=== PATIENT | female | born 1960 ===

== ENCOUNTER 2018-02-08 12:37 | Observation (INO) | payer MEDICARE, MEDICAID ==
[2018-02-08] MEDS ORDERED: Sodium Chloride 0.9% 1,000 ML IV ONE ×2 (13:30→15:56)
[2018-02-08 14:08] LABS: HEMOGLOBIN 12.9 g/dL (11.0-16.0); MONO # 0.8 K/uL (0.0-0.8); NEUT # 3.9 K/uL (1.8-7.0); NRBC % 0.1 % (0.0-2.0); WHITE BLOOD COUNT 5.7 K/uL (4.8-10.8)
[2018-02-08 14:13] LABS: BASO % 0.4 % (0.0-2.0); EOS % 0.5 % (0.0-4.0); LYMPH % 17.2 % (20.0-40.0); MEAN CELL VOLUME 89.2 fL (81.0-99.0); MEAN CORPUSCULAR HEMOGLOBIN 30.9 pg (27.0-31.0); MEAN CORPUSCULAR HGB CONC 34.7 g/dL (33.0-37.0); MEAN PLATELET VOLUME 10.6 fL (7.2-11.7); MONO % 13.5 % (0.0-10.0); NEUT % 68.4 % (50.0-75.0); RBC 4.17 Mil/uL (3.80-5.20); RED CELL DISTRIBUTION WIDTH 14.4 % (11.5-14.5)
[2018-02-08 14:14] LABS: INR 1.2; PROTHROMBIN TIME 13.6 SECONDS (9.7-12.2)
[2018-02-08 14:16] LABS: SQUAMOUS EPITHIAL 5 /hpf (0-5); URINE BACTERIA FEW (<OCC); URINE BILIRUBIN NEGATIVE (NEGATIVE); URINE BLOOD 1+ (NEGATIVE); URINE CLARITY Clear (Clear); URINE COLOR Yellow (YELLOW); URINE GLUCOSE (UA) NORMAL (Normal); URINE LEUKOCYTE ESTERASE 2+ Leu/uL (Negative); URINE PROTEIN NEGATIVE (NEGATIVE); URINE UROBILINOGEN NORMAL mg/dL (0.2-1.0)
[2018-02-08 14:31] LABS: BLOOD UREA NITROGEN 7 mg/dL (7-17); GFR NON-AFRICAN AMERICAN > 60
[2018-02-08 14:32] LABS: ALB/GLOB RATIO 1.2 (1.0-2.1); ALBUMIN 4.3 g/dL (3.5-5.0); ALT/SGPT 36 U/L (9-52); AST/SGOT 24 U/L (14-36); CALCIUM 9.4 mg/dl (8.6-10.4); LIPASE 63 U/L (23-300)
[2018-02-08] MEDS ORDERED: Iodixanol 320 MG/ML 100 ML BOTTLE IV ONE (15:23)
--- NOTE | 2018-02-08 16:28 | CT ---
Date of service: 02/08/2018 PROCEDURE: CT Abdomen and Pelvis with contrast HISTORY: LLQ pain COMPARISON: No prior study available comparison TECHNIQUE: Contrast dose: 100 cc Visipaque Radiation dose: Total exam DLP = mGy-cm. This CT exam was performed using one or more of the following dose reduction techniques: Automated exposure control, adjustment of the mA and/or kV according to patient size, and/or use of iterative reconstruction technique. FINDINGS: LOWER THORAX: There appears to be trace right-sided effusion. Minimal bibasilar atelectasis. Linear scarring seen in the left lung base and probably in the right middle lobe and lingular regions. Heart size within range of normal. No significant pericardial effusion. LIVER: Liver exhibits normal size. No evidence of hepatic mass collection or calcification. Portal and splenic veins are opacified. GALLBLADDER AND BILE DUCTS: Gallbladder physiologically distended. No evidence of intraluminal gallbladder calculi. PANCREAS: No obvious pancreatic masses or collections. No significant pancreatic ductal dilatation. SPLEEN: Spleen is unremarkable without mass collection or calcification. ADRENALS: No adrenal lesions. KIDNEYS AND URETERS: Kidneys demonstrate symmetric nephrograms. No evidence of nephrolithiasis or hydronephrosis. VASCULATURE: Unremarkable. No aortic aneurysm. . Retro aortic left renal vein In situ IVC filter BOWEL: Evaluation of the bowel is somewhat limited due to the lack of oral contrast material. Stomach is incompletely distended. Visualized loops of small bowel exhibit normal contour and caliber. No evidence of acute mechanical small bowel obstruction. APPENDIX: Appendix is not seen with complete certainty on this study. PERITONEUM: CT of free fluid is present within the pelvis surrounding the uterus and both adnexal with some extension of fluid into the right lower quadrant of the abdomen. The. While this could be secondary to a EXCAVATING SUPERVISOR shunt tube, the possibility of a ruptured ovarian cyst not excluded. Note also made of a in situ peritoneal cavity that extends inferiorly within the right parasagittal subcutaneous tissues of the mid and lower chest right anterior abdomen extending into the peritoneal cavity on the right side at the level of the umbilicus. This probably represents a EXCAVATING SUPERVISOR shunt tube. Clinical correlation recommended Small fat containing umbilical hernia LYMPH NODES: Unremarkable. No enlarged lymph nodes. BLADDER: Urinary bladder is physiologically distended. No evidence of intraluminal urinary bladder calculi. REPRODUCTIVE: There are curvilinear radiopaque densities within the fallopian tube region bilaterally consistent with Essure inserts. There is free fluid present within the pelvis surrounding the uterus and both adnexa. It is unclear whether the fluid is related to a possible ovarian origin or in situ EXCAVATING SUPERVISOR shunt tube. Suspect small bilateral adnexal cysts. Consider followup pelvic ultrasound for further evaluation if indicated. BONES: Minor multilevel degenerative spondylosis. There is also mild levoscoliosis centered at the L1-L2 level. OTHER FINDINGS: None. IMPRESSION: Trace right-sided effusion with minor bibasilar atelectasis. Catheter within the intraperitoneal cavity consistent with EXCAVATING SUPERVISOR shunt tube as above. Essure inserts within the fallopian tubes bilaterally. . There is free fluid present within the pelvis surrounding the uterus and both adnexa extending superiorly on the right side into the right lower quadrant of the abdomen. To the. It is unclear whether the fluid is related to a possible ovarian origin or in situ EXCAVATING SUPERVISOR shunt tube. Suspect small bilateral adnexal cysts. Consider followup pelvic ultrasound for further evaluation if indicated. In situ IVC filter. Appendix not seen with certainty on this study. Clinical correlation recommended.
--- NOTE | 2018-02-08 17:02 | C.PDOC ---
History Of Present Illness 57 yo female w/PMHx of hydrocephalus, s/p AV shunt, OA, chronic lower back pain , comes in for evaluation of Left lower abd. pain gradually developed for past 3-4 days. Pt as sent to ED by for further evaluation of abd. pain. As per , was seen in office 4 days ago and diagnosed with colitis, placed on Cipro/Flagyl. UA was sent o lab and review today with sign of UTI. As per , pt came today to office c/o abd. pain despite of abx treatment. Pt sts, last dose of abx were today AM. Otherwise, pt denies fever, chills, headache, dizziness, neck pain, CP, SOB, dyspnea, palpitation, N/V/D, hematuria , vaginal irritation or discharge. Ambulate to ED for evaluation, not in nay apparent distress. Time Seen by Provider: 02/08/18 12:39 Chief Complaint (Nursing): Female Genitourinary History Per: Patient Past Medical History Reviewed: Historical Data, Nursing Documentation, Vital Signs Vital Signs: Last Vital Signs Temp 98.0 F 02/08/18 15:42 Pulse 60 02/08/18 15:42 Resp 18 02/08/18 15:42 BP 135/69 02/08/18 15:42 Pulse Ox 100 02/08/18 15:42 - Medical History PMH: Arthritis, Back Problems, Diabetes (diet control), Chronic Pain Other PMH: Hydrocephalus Surgical History: Back Surgery Other Surgeries: AV shunt Family History: States: No Known Family Hx - Social History Hx Tobacco Use: No Hx Alcohol Use: No Hx Substance Use: No - Immunization History Hx Tetanus Toxoid Vaccination: No Hx Influenza Vaccination: No Hx Pneumococcal Vaccination: No Review Of Systems Except As Marked, All Systems Reviewed And Found Negative. Constitutional: Negative for: Fever, Chills ENT: Negative for: Throat Pain Cardiovascular: Negative for: Chest Pain Respiratory: Negative for: Cough, Shortness of Breath, Wheezing Gastrointestinal: Positive for: Abdominal Pain. Negative for: Nausea, Vomiting , Diarrhea Genitourinary: Negative for: Dysuria, Frequency, Hematuria Musculoskeletal: Negative for: Back Pain Skin: Negative for: Rash Neurological: Negative for: Weakness, Numbness, Headache, Dizziness Physical Exam - Physical Exam Appears: Well, Non-toxic, No Acute Distress Skin: Normal Color, Warm, Dry, No Rash Head: Normacephalic Eye(s): bilateral: PERRL Nose: No Flaring, No Discharge Oral Mucosa: Moist Throat: No Erythema, No Drooling Neck: Supple Cardiovascular: Rhythm Regular, No Murmur, No JVD Respiratory: No Decreased Breath Sounds, No Accessory Muscle Use, No Stridor, No Wheezing Gastrointestinal/Abdominal: Soft, Tenderness (mild LLQ tenderness), No Distention, No Guarding, No Rebound Back: No CVA Tenderness Extremity: Normal ROM, No Deformity, No Swelling Neurological/Psych: Oriented x3, Normal Speech ED Course And Treatment - Laboratory Results Result Diagrams: 02/08/18 14:00 02/08/18 14:00 Lab Interpretation: No Acute Changes O2 Sat by Pulse Oximetry: 100 Pulse Ox Interpretation: Normal - CT Scan/US CT abd/pelvis Other Rad Studies (CT/US): Radiology Report Reviewed CT/US Interpretation: Creator : Ayanna Panda. Dictator : Biology Faculty Member : Cigarette Making Machine Hopper Feeder : Nilesh Molina MD. Approver2 : Report Date : 02/08/2018 15:57: 53. My Comment : . Date of service: 02/08/2018. PROCEDURE: CT Abdomen and Pelvis with contrast. HISTORY: LLQ pain. COMPARISON: No prior study available comparison. TECHNIQUE: Contrast dose: 100 cc Visipaque. Radiation dose: Total exam DLP = mGy-cm. This CT exam was performed using one or more of the following dose reduction techniques: Automated exposure control, adjustment of the mA and/or kV according to patient size, and/or use of iterative reconstruction technique. FINDINGS: LOWER THORAX: There appears to be trace right-sided effusion. Minimal bibasilar atelectasis. Linear scarring seen in the left lung base and probably in the right middle lobe and lingular regions. Heart size within range of normal. No significant pericardial effusion. LIVER: Liver exhibits normal size. No evidence of hepatic mass collection or calcification. Portal and splenic veins are opacified. GALLBLADDER AND BILE DUCTS: Gallbladder physiologically distended. No evidence of intraluminal gallbladder calculi. PANCREAS: No obvious pancreatic masses or collections. No significant pancreatic ductal dilatation. SPLEEN: Spleen is unremarkable without mass collection or calcification. ADRENALS: No adrenal lesions. KIDNEYS AND URETERS: Kidneys demonstrate symmetric nephrograms. No evidence of nephrolithiasis or hydronephrosis. VASCULATURE: Unremarkable. No aortic aneurysm. . Retro aortic left renal vein In situ IVC filter. BOWEL: Evaluation of the bowel is somewhat limited due to the lack of oral contrast material. Stomach is incompletely distended. Visualized loops of small bowel exhibit normal contour and caliber. No evidence of acute mechanical small bowel obstruction. APPENDIX: Appendix is not seen with complete certainty on this study. PERITONEUM: CT of free fluid is present within the pelvis surrounding the uterus and both adnexal with some extension of fluid into the right lower quadrant of the abdomen. The. While this could be secondary to a FLAT IRONER shunt tube, the possibility of a ruptured ovarian cyst not excluded. Note also made of a in situ peritoneal cavity that extends inferiorly within the right parasagittal subcutaneous tissues of the mid and lower chest right anterior abdomen extending into the peritoneal cavity on the right side at the level of the umbilicus. This probably represents a FLAT IRONER shunt tube. Clinical correlation recommended. Small fat containing umbilical hernia. LYMPH NODES: Unremarkable. No enlarged lymph nodes. BLADDER: Urinary bladder is physiologically distended. No evidence of intraluminal urinary bladder calculi. REPRODUCTIVE: There are curvilinear radiopaque densities within the fallopian tube region bilaterally consistent with Essure inserts. There is free fluid present within the pelvis surrounding the uterus and both adnexa. It is unclear whether the fluid is related to a possible ovarian origin or in situ FLAT IRONER shunt tube. Suspect small bilateral adnexal cysts. Consider followup pelvic ultrasound for further evaluation if indicated. BONES: Minor multilevel degenerative spondylosis. There is also mild levoscoliosis centered at the L1-L2 level. OTHER FINDINGS: None. IMPRESSION: Trace right-sided effusion with minor bibasilar atelectasis. Catheter within the intraperitoneal cavity consistent with FLAT IRONER shunt tube as above. Essure inserts within the fallopian tubes bilaterally. . There is free fluid present within the pelvis surrounding the uterus and both adnexa extending superiorly on the right side into the right lower quadrant of the abdomen. To the. It is unclear whether the fluid is related to a possible ovarian origin or in situ FLAT IRONER shunt tube. Suspect small bilateral adnexal cysts. Consider followup pelvic ultrasound for further evaluation if indicated. In situ IVC filter. Appendix not seen with certainty on this study. Clinical correlation recommended. Progress Note: Case discussed and results review with . Blood work review, no acute leukocytosis, chemistry- no dehydration. UA results (+) WBC, RBC. CT abd/pelvis review (+) free pelvic fluid of uknown origin, further imaging recommend. Due to multiple comorbidities, pt failed outpt tx with Cipro for UTI, recommend OBS admission. results review and discussed with pt, agrees with plan. UCx- pending, today pt received empiric tx with ROcephin. Disposition - Disposition Disposition: HOME/ ROUTINE Disposition Time: 16:06 Condition: STABLE - Clinical Impression Clinical Impression: UTI (urinary tract infection), LLQ abdominal pain
[2018-02-08] MEDS ORDERED: Sodium Chloride 0.9% 1,000 ML ONE (17:09)
[2018-02-08] MEDS ORDERED: cefTRIAXone 1 gm 1 GM/100 ML BAG IVPB ONE (17:32)
--- NOTE | 2018-02-08 18:43 | US ---
Date of service: 02/08/2018 HISTORY: Left groin pain, free pelvic fluid on CT COMPARISON: None available. TECHNIQUE: Real-time transabdominal pelvic ultrasound was performed. In addition a transvaginal pelvic ultrasound was necessary to better depict pelvic anatomy. FINDINGS: UTERUS: Measures 6.3 x 3.7 x 4.3 cm. Anteverted. 0.9 x 0.7 x 1.0 cm probable the uterine fibroid. ENDOMETRIUM: Measures 1 cm in diameter. 2 small anechoic regions are noted within the endometrial canal which appear consistent with fluid. CERVIX: No cervical abnormality identified. RIGHT OVARY: Not visualized. LEFT OVARY: Not visualized. FREE FLUID: Small to moderate free fluid, in the region of the adnexa and cul-de-sac. OTHER FINDINGS: None. IMPRESSION: 0.9 x 0.7 x 1.0 cm probable mid uterine fibroid. Small to moderate free fluid, in the region of the adnexa and cul-de-sac. 2 small anechoic regions are noted within the endometrial canal which appear consistent with fluid. Bilateral ovaries are not visualized.
[2018-02-08 19:36] VITALS: RESP 20
[2018-02-08] MEDS: Dextrose 5%/0.45% NS 1,000 ML IV SCH (22:36)
[2018-02-09] MEDS: Dextrose 5%/0.45% NS 1,000 ML IV SCH (07:10)
[2018-02-09 08:35] VITALS: BP 122/66; PULSE 78; TEMP 99.6; O2SAT 96
[2018-02-09] MEDS ORDERED: Potassium Chloride 20 mEq ER Tab PO ONE (09:05)
[2018-02-09] MEDS ORDERED: Sodium Chloride 0.9% 1,000 ML IV SCH (09:15)
--- NOTE | 2018-02-09 09:20 | CP.PCM.HP ---
History of Present Illness - History of Present Illness History of Present Illness: CC: Fever 57 y/o with NIDDM. Patient seen on 02/05/18 c/o fever / chills x 3 days. He develop LUQ pain the next day. She was treated for presumed Diverticulitis. sg he was started on Cipro/ Flagyl but had persistent fever on wkend. Also develop diarrhea, waterry and tension like headache. Pt was sen yesterday and advise to go to ER. Initial labs on 02/05/18 with urinalysis with 2+ blood, (+) nitrite and WBC > 100. Present on Admission - Present on Admission Any Indicators Present on Admission: Yes History of DVT/PE: No History of Uncontrolled Diabetes: No Urinary Catheter: No Decubitus Ulcer Present: No Review of Systems - Review of Systems Systems not reviewed;Unavailable: Acuity of Condition - Constitutional Constitutional: Anorexia, Headache, Weakness. absent: Snoring, Sleep Apnea, Weight Loss - EENT Eyes: absent: Change in Vision, Pain, Requires Corrective Lenses, Sees Flashes, Other Visual Disturbances Ears: absent: Decreased Hearing, Disequilibrium, Dizziness Nose/Mouth/Throat: absent: Nasal Congestion, Post Nasal Drip, Dysphagia, Hoarsness, Mouth Lesions - Cardiovascular Cardiovascular: absent: Chest Pain, Leg Edema, Leg Ulcers, Lightheadedness, Palpitations, Pedal Edema - Respiratory Respiratory: Cough. absent: Hemoptysis, Dyspnea on Exertion, Snoring, Stridor, Pain on Inspiration, Chest Congestion, Change in Mucous Color - Gastrointestinal Gastrointestinal: Abdominal Pain, Diarrhea, Loose Stools, Nausea. absent: Bloating, Constipation, Dysphagia, Heartburn, Vomiting - Genitourinary Genitourinary: Hematuria. absent: Dysuria, Nocturia, Urinary Urgency - Reproductive: Female Reproductive:Female: Amenorrhea - Musculoskeletal Musculoskeletal: Abnormal Gait, Back Pain, Muscle Weakness, Myalgias, Numbness. absent: Atrophy, Loss of Height - Integumentary Integumentary: Bleeding Lesions. absent: Pruritus, Rash, Swelling, Unusual Bruising - Neurological Neurological: absent: Focal Weakness, Loss of Vision, Restless Legs Past Patient History - Infectious Disease Hx of Infectious Diseases: None - Past Social History Smoking Status: Never Smoked - NEUROLOGICAL Hx Neurological Disorder: Yes Other/Comment: hydrocephalus with shunt - ENDOCRINE/METABOLIC Hx Diabetes Mellitus Type 2: Yes (DIET CONTROLLED) - MUSCULOSKELETAL/RHEUMATOLOGICAL Hx Arthritis: Yes - PSYCHIATRIC Hx Substance Use: No - SURGICAL HISTORY Hx Surgeries: Yes Other/Comment: spine surgery, intestinal surgery, shunt for hydrocephalus - ANESTHESIA Hx Anesthesia: Yes Hx Anesthesia Reactions: No Hx Malignant Hyperthermia: No Meds Allergies/Adverse Reactions: Allergies Allergy/AdvReac Type Severity Reaction Status Date / Time tetracycline Allergy Verified 02/08/18 13:06 Physical Exam - Constitutional Appears: Well - Eye Exam Eye Exam: Normal appearance - ENT Exam ENT Exam: Mucous Membranes Moist - Neck Exam Neck exam: Positive for: Full Rom. Negative for: Lymphadenopathy, Normal Inspection - Respiratory Exam Respiratory Exam: Clear to Auscultation Bilateral. absent: Rales, Rhonchi, Wheezes - Cardiovascular Exam Cardiovascular Exam: REGULAR RHYTHM, +S1, +S2. absent: Gallop, JVD - GI/Abdominal Exam GI & Abdominal Exam: Soft. absent: Guarding, Mass, Rebound, Tenderness - Extremities Exam Extremities exam: Positive for: full ROM, normal capillary refill, pedal pulses present. Negative for: calf tenderness, joint swelling, pedal edema Results - Vital Signs Recent Vital Signs: Last Vital Signs Temp 99.6 F 02/09/18 08:00 Pulse 78 02/09/18 08:00 Resp 20 02/09/18 08:00 BP 122/66 02/09/18 08:00 Pulse Ox 96 02/09/18 08:00 - Labs Result Diagrams: 02/08/18 14:00 02/08/18 14:00 Labs: Laboratory Results - last 24 hr 02/08/18 02/08/18 02/08/18 14:00 14:00 14:00 WBC 5.7 RBC 4.17 Hgb 12.9 Hct 37.1 MCV 89.2 MCH 30.9 MCHC 34.7 RDW 14.4 Plt Count 161 MPV 10.6 Neut % (Auto) 68.4 Lymph % (Auto) 17.2 L [place] % (Auto) 13.5 H Eos % (Auto) 0.5 Baso % (Auto) 0.4 Neut # (Auto) 3.9 Lymph # (Auto) 1.0 [place] # (Auto) 0.8 Eos # (Auto) 0.0 Baso # (Auto) 0.0 PT 13.6 H INR 1.2 APTT 31 Sodium Potassium Chloride Carbon Dioxide Anion Gap BUN Creatinine Est GFR ( Amer) Est GFR (Non-Af Amer) Random Glucose Calcium Total Bilirubin AST ALT Alkaline Phosphatase Total Protein Albumin Globulin Albumin/Globulin Ratio Lipase Urine Color Yellow Urine Clarity Clear Urine pH 6.0 Ur Specific [place] 1.006 Urine Protein Negative Urine Glucose (UA) Normal Urine Ketones 1+ H Urine Blood 1+ H Urine Nitrate Negative Urine Bilirubin Negative Urine Urobilinogen Normal Ur Leukocyte Esterase 2+ H Urine WBC (Auto) 18 H Urine RBC (Auto) 7 H Ur Squamous Epith Cells 5 Urine Bacteria Few H 02/08/18 14:00 WBC RBC Hgb Hct MCV MCH MCHC RDW Plt Count MPV Neut % (Auto) Lymph % (Auto) [place] % (Auto) Eos % (Auto) Baso % (Auto) Neut # (Auto) Lymph # (Auto) [place] # (Auto) Eos # (Auto) Baso # (Auto) PT INR APTT Sodium 144 Potassium 3.5 L Chloride 103 Carbon Dioxide 27 Anion Gap 18 BUN 7 Creatinine 0.5 L Est GFR ( Amer) > 60 Est GFR (Non-Af Amer) > 60 Random Glucose 101 Calcium 9.4 Total Bilirubin 0.5 AST 24 ALT 36 Alkaline Phosphatase 124 Total Protein 7.9 Albumin 4.3 Globulin 3.6 Albumin/Globulin Ratio 1.2 Lipase 63 Urine Color Urine Clarity Urine pH Ur Specific [place] Urine Protein Urine Glucose (UA) Urine Ketones Urine Blood Urine Nitrate Urine Bilirubin Urine Urobilinogen Ur Leukocyte Esterase Urine WBC (Auto) Urine RBC (Auto) Ur Squamous Epith Cells Urine Bacteria Assessment & Plan - Assessment and Plan (Free Text) Assessment: Fever/ abd pain ? ruptured cyst Diarrhea NIDDM w/ neuropathy s/p AV Shunt (1994) Cont cipro/ ID consult Cont hydration/ K supplement FS w/ coverage
[2018-02-09] MEDS ORDERED: Oxybutynin XL 10 mg Tab PO SCH (10:00)
[2018-02-09] MEDS ORDERED: (Novolin R) Insulin Human Regular 100 units/ml vial SC SCH (11:30)
--- NOTE | 2018-02-09 12:08 | CP.PCM.CON ---
History of Present Illness - History of Present Illness History of Present Illness: recently treated for poss diverticulitis now returns with abd/ flank pain on IV antibiotics pending cultures cont rocephin Iv r=for now will need eval / follow up; Review of Systems - Review of Systems All systems: reviewed and no additional remarkable complaints except - Constitutional Constitutional: As Per HPI - EENT Eyes: absent: As Per HPI, Blind Spots, Blurred Vision, Change in Vision, Decreased Night Vision, Diplopia, Discharge, Dry Eye, Exophthalmos, Floaters, Irritation, Itchy Eyes, Loss of Peripheral Vision, Pain, Photophobia, Requires Corrective Lenses, Sees Flashes, Spots in Vision, Tunnel Vision, Other Visual Disturbances, Loss of Vision, Other Ears: absent: As Per HPI, Decreased Hearing, Ear Discharge, Ear Pain, Tinnitus, Abnormal Hearing, Disequilibrium, Dizziness, Other Nose/Mouth/Throat: absent: As Per HPI, Epistaxis, Nasal Congestion, Nasal Discharge, Nasal Obstruction, Nasal Trauma, Nose Pain, Post Nasal Drip, Sinus Pain, Sinus Pressure, Bleeding Gums, Change in Voice, Dental Pain, Dry Mouth, Dysphagia, Halitosis, Hoarsness, Lip Swelling, Mouth Lesions, Mouth Pain, Odynophagia, Sore Throat, Throat Swelling, Tongue Swelling, Facial Pain, Neck Pain, Neck Mass, Other - Breasts Breasts: absent: As Per HPI, Change in Shape, Mass, Pain, Nipple Discharge, Nipple Inversion, Skin Changes, Swelling, Other - Cardiovascular Cardiovascular: absent: As Per HPI, Acrocyanosis, Chest Pain, Chest Pain at Rest , Chest Pain with Activity, Claudication, Diaphoresis, Dyspnea, Dyspnea on Exertion, Edema, Irregular Heart Rhythm, Pain Radiating to Arm/Neck/Jaw, Leg Edema, Leg Ulcers, Lightheadedness, Orthopnea, Palpitations, Paroxysmal Nocturnal Dyspnea, Pedal Edema, Radiating Pain, Rapid Heart Rate, Slow Heart Rate, Syncope, Other - Respiratory Respiratory: absent: As Per HPI, Cough, Dyspnea, Hemoptysis, Dyspnea on Exertion , Wheezing, Snoring, Stridor, Pain on Inspiration, Chest Congestion, Excessive Mucous Production, Change in Mucous Color, Pain with Coughing, Other - Gastrointestinal Gastrointestinal: As Per HPI - Genitourinary Genitourinary: As Per HPI - Reproductive: Female Reproductive:Female: absent: As Per HPI, Amenorrhea, Amenorrhea/ Control, Currently Menstual, Cycle <21 Days, Cycle >35 Days, Cycle Variable, Menses 1-7 Days, Menses >/= 8 Days, Menses Variable, Cycle > 4 Weeks Between, No Menses for 6 Months, Heavy Menses, Light Menses, Normal Menses, Spotting Between Cycles , S/P Hysterectomy, Menopausal, Post Menopausal, Premenarche, Abnormal Vaginal Bleeding, Dysmenorrhea, Dyspareunia, Genital Lesions, Genital Pruritis, Pelvic Pain, Prolapse Symptoms, Sexual Dysfunction, Vaginal Discharge, Vaginal Dryness , Vaginal Odor, Vaginal Pruritis, Other - Menstruation Menstruation: absent: As Per HPI, Amenorrhea, Amenorrhea/ Control, Currently Menstual, Cycle <21 Days, Cycle >35 Days, Cycle Variable, Menses 1-7 Days, Menses >/= 8 Days, Menses Variable, Cycle > 4 Weeks Between, No Menses for 6 Months, Heavy Menses, Light Menses, Normal Menses, Spotting Between Cycles , S/P Hysterectomy, Menopausal, Post Menopausal, Premenarche, Abnormal Vaginal Bleeding, Dysmenorrhea, Other - Musculoskeletal Musculoskeletal: absent: As Per HPI, Abnormal Gait, Arthralgias, Atrophy, Back Pain, Deformity, Joint Swelling, Limited Range of Motion, Loss of Height, Muscle Cramps, Muscle Weakness, Myalgias, Neck Pain, Numbness, Radiating Pain into Limb, Stiffness, Tingling, Other - Integumentary Integumentary: absent: As Per HPI, Acne, Alopecia, Bleeding Lesions, Change in Hair, Change in Nails, Change in Pigmentation, Changing Lesions, Dry Skin, Erythema, Furuncle, Hirsutism, Lesions, New Lesions, Non-Healing Lesions, Photosensitivity, Pruritus, Rash, Skin Pain, Skin Ulcer, Sores, Striae, Swelling , Unusual Bruising, Wounds, Jaundice, Other - Neurological Neurological: absent: As Per HPI, Abnormal Gait, Abnormal Hearing, Abnormal Movements, Abnormal Speech, Behavioral Changes, Burning Sensations, Confusion, Convulsions, Disequilibrium, Dizziness, Numbness, Focal Weakness, Frequent Falls , Headaches, Lack of Coordination, Loss of Vision, Memory Loss, Paresthesias, Radicular Pain, Restless Legs, Sensory Deficit, Syncope, Tingling, Tremor, Vertigo, Weakness, Other Visual Disturbances, Other - Psychiatric Psychiatric: absent: As Per HPI, Abnormal Sleep Pattern, Anhedonia, Anxiety, Auditory Hallucinations, Behavioral Changes, Change in Appetite, Change in Libido, Confusion, Depression, Difficulty Concentrating, Hallucinations, Homicidal Ideation, Hopelessness, Irritability, Memory Loss, Mood Swings, Panic Attacks, Paranoia, Suicidal Ideation, Visual Hallucinations, Tactile Hallucinations, Other - Endocrine Endocrine: absent: As Per HPI, Change in Body Appearance, Change in Libido, Cold Intolorance, Deepening of Voice, Excessive Sweating, Fatigue, Flushing, Heat Intolorance, Increase in Ring/Shoe/Hat Size, Palpitations, Polydipsia, Polyphagia, Polyuria, Other - Hematologic/Lymphatic Hematologic: absent: As Per HPI, Easy Bleeding, Easy Bruising, Lymphadenopathy, Other Past Patient History - Infectious Disease Hx of Infectious Diseases: None - Past Social History Smoking Status: Never Smoked - NEUROLOGICAL Hx Neurological Disorder: Yes Other/Comment: hydrocephalus with shunt - ENDOCRINE/METABOLIC Hx Diabetes Mellitus Type 2: Yes (DIET CONTROLLED) - MUSCULOSKELETAL/RHEUMATOLOGICAL Hx Arthritis: Yes - PSYCHIATRIC Hx Substance Use: No - SURGICAL HISTORY Hx Surgeries: Yes Other/Comment: spine surgery, intestinal surgery, shunt for hydrocephalus - ANESTHESIA Hx Anesthesia: Yes Hx Anesthesia Reactions: No Hx Malignant Hyperthermia: No Meds Allergies/Adverse Reactions: Allergies Allergy/AdvReac Type Severity Reaction Status Date / Time tetracycline Allergy Verified 02/08/18 13:06 - Medications Medications: Current Medications Acetaminophen (Tylenol 325mg Tab) 650 mg PO Q4H PRN PRN Reason: Fever >100.4 F Ciprofloxacin (Cipro) 500 mg PO BID [facility] PRN Reason: Protocol Last Admin: 02/09/18 09:54 Dose: 500 mg Gabapentin (Neurontin) 300 mg PO TID [facility] Last Admin: 02/09/18 09:53 Dose: 300 mg Heparin Sodium (Porcine) (Heparin) 5,000 units SC Q12 [facility] Last Admin: 02/09/18 09:54 Dose: 5,000 units Ceftriaxone Sodium 1 gm/ (Sodium Chloride) 100 mls @ 100 mls/hr IVPB DAILY [facility] PRN Reason: Protocol Last Admin: 02/09/18 09:51 Dose: 100 mls/hr Sodium Chloride (Sodium Chloride 0.9%) 1,000 mls @ 100 mls/hr IV .Q10H [facility] Last Admin: 02/09/18 10:03 Dose: 100 mls/hr Ibuprofen (Motrin Tab) 600 mg PO TID [facility] Last Admin: 02/09/18 09:51 Dose: 600 mg Insulin Human Regular (Novolin R) 0 unit SC ACHS [facility] PRN Reason: Protocol Last Admin: 02/09/18 11:21 Dose: Not Given Oxybutynin Chloride (Ditropan Xl) 10 mg PO DAILY [facility] Last Admin: 02/09/18 09:51 Dose: 10 mg Pneumococcal Polyvalent Vaccine (Pneumovax 23 Vaccine) 0.5 ml IM .ONCE ONE Stop: 02/10/18 08:01 Physical Exam - Constitutional Appears: Non-toxic, Chronically Ill - Head Exam Head Exam: NORMOCEPHALIC - Eye Exam Eye Exam: PERRL - ENT Exam ENT Exam: Mucous Membranes Dry - Neck Exam Neck exam: Negative for: Lymphadenopathy - Respiratory Exam Respiratory Exam: Decreased Breath Sounds, Clear to Auscultation Bilateral - Cardiovascular Exam Cardiovascular Exam: REGULAR RHYTHM, +S1, +S2 - GI/Abdominal Exam GI & Abdominal Exam: Diminished Bowel Sounds, Soft. absent: Tenderness - Rectal Exam Rectal Exam: Deferred - Exam Exam: NORMAL INSPECTION - Extremities Exam Extremities exam: Negative for: calf tenderness, pedal edema, pedal pulses present - Back Exam Back exam: absent: CVA tenderness (L), CVA tenderness (R), paraspinal tenderness - Neurological Exam Neurological exam: Alert, CN II-XII Intact, Oriented x3, Reflexes Normal - Psychiatric Exam Psychiatric exam: Normal Mood - Skin Skin Exam: Dry, Intact Results - Vital Signs Recent Vital Signs: Last Vital Signs Temp 99.6 F 02/09/18 08:00 Pulse 78 02/09/18 08:00 Resp 20 02/09/18 08:00 BP 122/66 02/09/18 08:00 Pulse Ox 96 02/09/18 08:00 - Labs Result Diagrams: 02/08/18 14:00 02/08/18 14:00 Labs: Laboratory Results - last 24 hr 02/08/18 02/08/18 02/08/18 14:00 14:00 14:00 WBC 5.7 RBC 4.17 Hgb 12.9 Hct 37.1 MCV 89.2 MCH 30.9 MCHC 34.7 RDW 14.4 Plt Count 161 MPV 10.6 Neut % (Auto) 68.4 Lymph % (Auto) 17.2 L Ellis % (Auto) 13.5 H Eos % (Auto) 0.5 Baso % (Auto) 0.4 Neut # (Auto) 3.9 Lymph # (Auto) 1.0 Ellis # (Auto) 0.8 Eos # (Auto) 0.0 Baso # (Auto) 0.0 PT 13.6 H INR 1.2 APTT 31 Sodium Potassium Chloride Carbon Dioxide Anion Gap BUN Creatinine Est GFR ( Amer) Est GFR (Non-Af Amer) POC Glucose (mg/dL) Random Glucose Calcium Total Bilirubin AST ALT Alkaline Phosphatase Total Protein Albumin Globulin Albumin/Globulin Ratio Lipase Urine Color Yellow Urine Clarity Clear Urine pH 6.0 Ur Specific [place] 1.006 Urine Protein Negative Urine Glucose (UA) Normal Urine Ketones 1+ H Urine Blood 1+ H Urine Nitrate Negative Urine Bilirubin Negative Urine Urobilinogen Normal Ur Leukocyte Esterase 2+ H Urine WBC (Auto) 18 H Urine RBC (Auto) 7 H Ur Squamous Epith Cells 5 Urine Bacteria Few H 02/08/18 02/09/18 14:00 11:20 WBC RBC Hgb Hct MCV MCH MCHC RDW Plt Count MPV Neut % (Auto) Lymph % (Auto) Ellis % (Auto) Eos % (Auto) Baso % (Auto) Neut # (Auto) Lymph # (Auto) Ellis # (Auto) Eos # (Auto) Baso # (Auto) PT INR APTT Sodium 144 Potassium 3.5 L Chloride 103 Carbon Dioxide 27 Anion Gap 18 BUN 7 Creatinine 0.5 L Est GFR ( Amer) > 60 Est GFR (Non-Af Amer) > 60 POC Glucose (mg/dL) 102 Random Glucose 101 Calcium 9.4 Total Bilirubin 0.5 AST 24 ALT 36 Alkaline Phosphatase 124 Total Protein 7.9 Albumin 4.3 Globulin 3.6 Albumin/Globulin Ratio 1.2 Lipase 63 Urine Color Urine Clarity Urine pH Ur Specific [place] Urine Protein Urine Glucose (UA) Urine Ketones Urine Blood Urine Nitrate Urine Bilirubin Urine Urobilinogen Ur Leukocyte Esterase Urine WBC (Auto) Urine RBC (Auto) Ur Squamous Epith Cells Urine Bacteria Assessment & Plan (1) LLQ abdominal pain Status: Acute (2) UTI (urinary tract infection) Status: Acute - Assessment and Plan (Free Text) Assessment: await cultures cont IV antibiotics
[2018-02-09] MEDS ORDERED: Pneumococcal 23-Valent Vaccine IM ONE (14:15)
[2018-02-10] MEDS ORDERED: Pneumococcal 23-Valent Vaccine IM ONE (08:00)
== END 2018-02-09 15:45 | disposition left against medical advice (07) ==
LOC: C.ER 12:37 → C.9E 16:09 → C.3T 17:54
PROVIDERS: ADMIT Internal Medicine; ATTEND Internal Medicine
DX: N39.0 Urinary tract infection, site not specified (principal); R10.32 Left lower quadrant pain; R19.7 Diarrhea, unspecified; E11.40 Type 2 diabetes mellitus with diabetic neuropathy, unspecified; G89.29 Other chronic pain; G91.9 Hydrocephalus, unspecified; M19.90 Unspecified osteoarthritis, unspecified site; Z98.2 Presence of cerebrospinal fluid drainage device
CPT/HCPCS: 74177; 76830; 76856; 80053; 81001; 82948; 83690; 85025; 85610; 85730; 87040; 87086; 96361; 96365; 96366; 96372; 99283; G0378; J0696; J1644; J7030; J7042; Q9967